=== PATIENT | female | born 1960 | race Caucasian/White ===

== ENCOUNTER 2021-06-01 15:38 | Emergency (ER) | payer OTHER ==
[~2021-06-01] VITALS: Ht 162.6 cm; Wt 90.7 kg
[2021-06-01 15:45] VITALS: BP_SYST 151
--- NOTE | 2021-06-01 15:54 | NUR ---
60 years old female in police custody walk-in to er hand cuff for ok to book and blood drawn, patient denies pain alert, oriented oriented x4.
--- NOTE | 2021-06-01 15:56 | NUR ---
Dr Escobar notified.
--- NOTE | 2021-06-01 16:12 | NUR ---
blood drawn and given to officer, awaiting for Md evaluation.
--- NOTE | 2021-06-01 16:28 | NUR ---
patient ok to book d/c in police custody left er ambulatory with steady gait.
--- NOTE | 2021-06-01 16:30 | NUR ---
Patient given written and verbal discharge instructions and verbalizes understanding. ER MD discussed with patient the results and treatment provided. Patient in stable condition. ID arm band removed. Patient educated on pain management and to follow up with PMD. Pain Scale . Opportunity for questions provided and answered. Medication side effect fact sheet provided.
--- NOTE | 2021-06-01 16:30 | NUR ---
Blood for labwork drawn from left hand. Patient tolerated well.
== END 2021-06-01 16:30 ==
LOC: SED 15:38
DX: Z00.00 Encounter for general adult medical examination without abnormal findings (principal)
CPT/HCPCS: 99283